=== PATIENT | male | born 1975 | race Caucasian/White ===

== ENCOUNTER 2016-09-20 11:36 | Inpatient (IN) | payer BC ==
[~2016-09-20] VITALS: Ht 190.5 cm; Wt 169.5 kg
[2016-09-20] MEDS ORDERED: KETOROLAC 15 MG INJ IV STA (12:38)
[2016-09-20] MEDS ORDERED: LIDOCAINE/MYLANTA 40 ML BTL PO STA (12:44)
[2016-09-20] MEDS ORDERED: BELLADONNA/PHENOBARBITAL TAB PO STA (12:44)
[2016-09-20] MEDS ORDERED: ASPI-664 PO (12:50)
[2016-09-20] MEDS ORDERED: ASPIRIN 81 MG TAB PO ONE (13:00)
[2016-09-20] MEDS ORDERED: NITROGLYCERIN (SL) 0.4 MG TAB SL ONE (13:00)
[2016-09-20 13:06] LABS: BASOPHIL # 0.1 10^3/ul (0.0-0.1); BASOPHILS % 0.6 % (0.0-2.0); EOSINOPHILS # 0.2 10^3/ul (0.0-0.5); EOSINOPHILS % 2.3 % (0.0-7.0); HEMATOCRIT 43.9 % (42.0-52.0); HEMOGLOBIN 15.2 g/dl (14.0-18.0); LYMPHOCYTES # 2.1 10^3/ul (0.8-2.9); LYMPHOCYTES % 26.1 % (15.0-51.0); MEAN CORPUSCULAR HEMOGLOBIN 31.8 pg (29.0-33.0); MEAN CORPUSCULAR HGB CONC 34.6 g/dl (32.0-37.0); MEAN CORPUSCULAR VOLUME 91.8 fl (82.0-101.0); MEAN PLATELET VOLUME 10.5 fl (7.4-10.4); MONOCYTE # 0.7 10^3/ul (0.3-0.9); MONOCYTES % 8.8 % (0.0-11.0); NEUTROPHIL # 4.9 10^3/ul (1.6-7.5); NEUTROPHILS % 61.6 % (39.0-77.0); PLATELET COUNT 195 10^3/UL (140-415); RED BLOOD COUNT 4.78 10^6/ul (4.70-6.10); RED CELL DISTRIBUTION WIDTH 12.2 % (11.5-14.5); WHITE BLOOD COUNT 7.9 10^3/ul (4.8-10.8)
[2016-09-20 13:24] LABS: ALANINE AMINOTRANSFERASE 55 IU/L (13-69); ALBUMIN 4.7 g/dl (3.3-4.9); ALBUMIN/GLOBULIN RATIO 1.34; ALKALINE PHOSPHATASE 85 IU/L (42-121); ANION GAP 20 (8-16); ASPARTATE AMINO TRANSFERASE 28 IU/L (15-46); BILIRUBIN,INDIRECT 0.4 mg/dl (0-1.1); BILIRUBIN,TOTAL 0.4 mg/dl (0.2-1.3); BLOOD UREA NITROGEN 10 mg/dl (7-20); CALCIUM 9.5 mg/dl (8.4-10.2); CARBON DIOXIDE 27 mmol/L (21-31); CHLORIDE 103 mmol/L (97-110); CREATININE 0.68 mg/dl (0.61-1.24); GLUCOSE 90 mg/dl (70-220); POTASSIUM 4.4 mmol/L (3.5-5.1); TOTAL PROTEIN 8.2 g/dl (6.1-8.1)
[2016-09-20 13:42] LABS: TROPONIN-I < 0.012 ng/ml (0.00-0.12)
[2016-09-20 14:01] LABS: SODIUM 144 mmol/L (135-144)
--- NOTE | 2016-09-20 14:14 | RADRPT ---
PROCEDURE: Chest Radiograph. CLINICAL INDICATION: Abdominal pain TECHNIQUE: Single frontal chest radiograph. COMPARISON: None available FINDINGS: The cardiomediastinal silhouette is within normal limits. No infiltrate or effusion is seen. Th e bones are intact. IMPRESSION: 1. Unremarkable chest radiograph. RPTAT: KK .Williams Murphy MD, MD Date Time Electronically viewed and signed by .Williams Murphy MD, on 09/20/2016 14:14 .B/
[2016-09-20] MEDS ORDERED: hydrALAzine 20 MG INJ IV PRN (15:00)
[2016-09-20] MEDS ORDERED: ONDANSETRON 4 MG INJ IV PRN (15:00)
[2016-09-20] MEDS ORDERED: NITROGLYCERIN (SL) 0.4 MG TAB SL PRN (15:00)
[2016-09-20] MEDS ORDERED: ACETAMINOPHEN 650 MG SUPP PR PRN (15:00)
[2016-09-20] MEDS ORDERED: DOCUSATE SODIUM 100 MG CAP PO PRN (15:00)
[2016-09-20] MEDS ORDERED: NACL 0.9% 3 ML SYG IV SCH (15:00)
[2016-09-20] MEDS ORDERED: morphine 2 MG INJ IV PRN (15:00)
[2016-09-20] MEDS ORDERED: ACETAMINOPHEN 325 MG TAB PO PRN (15:00)
--- NOTE | 2016-09-20 15:10 | HP ---
Date/Time of Note Date/Time of Note DATE: 09/20/16 TIME: 15:06 Assessment/Plan VTE Prophylaxis VTE Prophylaxis Intervention: LMWH Assessment/Plan Chief Complaint/Hosp Course This is a 41-year-old male with a past medical history of myocardial infarction , stent placed, who presented to the emergency room for evaluation of chest pain 1. Substernal chest pain. Rule out acute coronary syndrome versus possible GERD syndrome. -Obtain serial troponin 3, serial EKG, and 2D echocardiogram. -Patient will be started on aspirin. -Cardiology consult for further risk stratification. 2. History of dyslipidemia, off statin therapy. -Obtain fasting lipid panel and treat accordingly. 3. Morbid obesity. -Weight reduction advised. Will also obtain A1c. 4.Sleep apnea.Home CPAP -CPAP standby 5.History of [place] with PTCA and stent 5 yo ago. DVT prophylaxis: Lovenox PUD prophylaxis: Pepcid Plan: Patient will be admitted inpatient telemetry. We will rule out acute coronary syndrome. We will also obtain A1c, TSH and fasting lipid panel. Patient will be placed on a diet. Rest of the management depend on clinical course, further studies and input from showroom consultant. Case discussed with Dr. Rosado Approximately 60 minutes was spent on this history and physical. Problems: HPI/ROS Admit Date/Time Admit Date/Time Hx of Present Illness This is a 41-year-old male with a past medical history of myocardial infarction 5 years ago with PTCA and stent placed, dyslipidemia who is now off statin therapy,obstructive sleep apnea who presented to the emergency room with a complaint of chest pain that started early this morning at 1030. Patient reported substernal chest pain without any radiation to other part. He denied any nausea, vomiting or abdominal discomfort. Patient denied any palpitation, shortness of breath, loss of consciousness, numbness or tingling. Patient takes only aspirin at home. Initial labs unremarkable with a negative troponin. EKG without any acute ST or T-wave changes. Patient was in sinus rhythm. In the emergency room, he was given aspirin, sublingual nitroglycerin in the emergency room. Patient chest pain was relieved with nitroglycerin sublingual and a clinical decision was made to admit for further evaluation. At my encounter with the patient, he did not have any further chest pain or other discomfort. ROS A 12 point review of system was assessed and is negative other than what is mentioned in the HPI PMH/Family/Social Past Medical History See HPI Past Surgical History See HPI Social History Denies smoking, alcohol or illicit drug use. Exam/Review of Systems Vital Signs Vitals Vital Signs Date Time Temp Pulse Resp B/P Pulse Ox O2 Delivery O2 Flow Rate FiO2 09/20/16 13:47 75 16 144/84 98 09/20/16 11:39 98.1 Exam Exam General: Well developed,adequately built, not in any acute distress . HEENT: Normocephalic, Atraumatic, No laceration or hematoma; Eyes: PEERL, Conjunctiva clear, Anicteric sclera Neck: Supple without any lymphadenopathy, nontender, no JVD, no carotid bruits, trachea midline, no thyromegaly Cardiac: S1, S2 auscultated, regular rhythm and rate, no mumurs or gallop Pulmonary: Normal respiratory effort. Chest clear to auscultation bilaterally, no adventitious breath sounds GI: Abdomen normal to inspection. Soft, non tender, non- distended, no masses, no rebound tenderness or guarding. Bowel sounds active on all four quadrants Genitourinary: Deferred Extremities: No cyanosis, clubbing, or edema. Pulses [2+] bilaterally. Full ROM on all four extremities. No focal weakness appreciated. Neurologic: Alert to person, place, time, and situation. Affect appropriate, intact sensation. Skin: Clean,dry, and intact. No ecchymosis, no rashes, or lesions Labs Result Diagram: 09/20/16 1300 09/20/16 1300 Medications Medications Current Medications Ondansetron HCl (Zofran Inj) 4 mg Q6H PRN IV NAUSEA AND/OR VOMITING; Start 09/20 at 15:00; Status UNV Acetaminophen (Tylenol Tab) 650 mg Q6H PRN PO PAIN LEVEL 1-3 OR FEVER; Start at 15:00; Status UNV Acetaminophen (Tylenol Supp) 650 mg Q6H PRN [place] PAIN LEVEL 1-3 OR FEVER; Start 09/20/16 at 15:00; Status UNV Morphine Sulfate (morphine) 2 mg Q4H PRN IV SEVERE PAIN LEVEL 7-10; Start at 15:00; Status UNV Docusate Sodium (Colace) 100 mg Q12H PRN PO CONSTIPATION; Start 09/20/16 at 15: 00; Status BENJAMIN FARLEY NP Sep 20, 2016 15:10
[2016-09-20 15:39] VITALS: TEMP 98.3
--- NOTE | 2016-09-20 16:05 | ERA ---
ER Documentation Chief Complaint Date/Time DATE: 09/20/16 TIME: 16:00 Chief Complaint cp onset 1 hr ago HPI 41-year-old man with a history of OR and stent placement 5 years ago presents with sharp stabbing substernal chest pain associated with diaphoresis beginning an hour ago while at an office meeting. He states the discomfort felt similar to his previous episode of OR 5 years ago. He denies cough, no fevers or chills , no vomiting, no headache or blurry vision, states discomfort has remained constant. Patient uses aspirin daily. ROS All systems reviewed and are negative except as per history of present illness. Medications Home Meds Reported Medications Aspirin (Low Dose Aspirin) 81 Mg Tablet., 81 MG PO DAILY, #30 TAB 09/20/16 Allergies Allergies: Coded Allergies: Penicillins (Unverified Allergy, Unknown, rash hives, 09/20/16) PMhx/Soc Obesity, CAD, OR, PCI with stent placement FmHx Family History: No diabetes Physical Exam Vitals Vital Signs Date Time Temp Pulse Resp B/P Pulse Ox O2 Delivery O2 Flow Rate FiO2 09/20/16 15:39 98.3 72 18 147/83 98 09/20/16 13:47 75 16 144/84 98 09/20/16 11:39 98.1 72 18 172/94 95 Physical Exam GENERAL: Well-developed, well-nourished, well-hydrated, in no apparent distress , looks nontoxic in appearance HEENT: Moist mucous membranes, pink conjunctiva, no cervical spine tenderness or step-off deformities, no goiter, no jaundice or icterus, extraocular movements intact without pain. No submandibular induration, and no pharyngeal erythema NEURO: Alert and oriented 3, cranial nerves II through XII intact bilaterally, pupils equal round reactive to light, no focal deficits or facial asymmetry, sensation intact distally Strength 5/5 in upper and lower extremities bilaterally CARDIAC: Regular rate and rhythm, no murmurs rubs or gallops LUNGS: Clear bilaterally no wheezing crackles or stridor ABDOMEN: Soft nontender, no guarding, no rigidity, no rebound, no psoas sign no obturator sign. Normoactive bowel sounds SKIN: Warm and dry to touch, no abrasions, contusions, or hematomas, no lacerations, no ecchymosis, no target lesions, and without ulcers EXTREMITIES: No clubbing cyanosis or edema, calves are bilaterally symmetrical, no Homans sign, no popliteal cord sign. Distal pulses equal and bilateral PSYCH: Normal affect without agitation or irritability Result Diagram: 09/20/16 1300 09/20/16 1300 Results 24 hrs Laboratory Tests Test 09/20/16 13:00 White Blood Count 7.910^3/ul Red Blood Count 4.7810^6/ul Hemoglobin 15.2g/dl Hematocrit 43.9% Mean Corpuscular Volume 91.8fl Mean Corpuscular Hemoglobin 31.8pg Mean Corpuscular Hemoglobin Concent 34.6g/dl Red Cell Distribution Width 12.2% Platelet Count 80342^3/UL Mean Platelet Volume 10.5fl Neutrophils % 61.6% Lymphocytes % 26.1% Monocytes % 8.8% Eosinophils % 2.3% Basophils % 0.6% Nucleated Red Blood Cells % 0.0/100WBC Neutrophils # 4.910^3/ul Lymphocytes # 2.110^3/ul Monocytes # 0.710^3/ul Eosinophils # 0.210^3/ul Basophils # 0.110^3/ul Nucleated Red Blood Cells # 0.010^3/ul Sodium Level 144mmol/L Potassium Level 4.4mmol/L Chloride Level 103mmol/L Carbon Dioxide Level 27mmol/L Anion Gap 20 Blood Urea Nitrogen 10mg/dl Creatinine 0.68mg/dl Glucose Level 90mg/dl Calcium Level 9.5mg/dl Total Bilirubin 0.4mg/dl Direct Bilirubin 0.00mg/dl Indirect Bilirubin 0.4mg/dl Aspartate Amino Transf (AST/SGOT) 28IU/L Alanine Aminotransferase (ALT/SGPT) 55IU/L Alkaline Phosphatase 85IU/L Troponin I < 0.012ng/ml Total Protein 8.2g/dl Albumin 4.7g/dl Globulin 3.50g/dl Albumin/Globulin Ratio 1.34 Lipase 111U/L Current Medications Medications (Trade) Dose Ordered Sig/Toma Route PRN Reason Start Time Stop Time Status Last Admin Dose Admin Ketorolac Tromethamine (Toradol) 15 mg ONCE STAT IV 09/20/16 12:38 09/20/16 12:45 DC 09/20/16 13:40 Aspirin (Aspirin) 324 mg ONCE ONCE PO 09/20/16 13:00 09/20/16 13:01 DC 09/20/16 13:40 Nitroglycerin (Nitroglycerin (Sl Tab) 0.4 Mg) 1 tab ONCE ONCE SL 09/20/16 13:00 09/20/16 13:01 DC 09/20/16 13:39 Miscellaneous Medication (Gi Cocktail (2)) 40 ml ONCE STAT PO 09/20/16 12:44 09/20/16 12:45 DC 09/20/16 13:40 Belladonna/ Phenobarbital () 2 tab ONCE STAT PO 09/20/16 12:44 09/20/16 12:45 DC 09/20/16 13:39 IV Flush (NS 3 ml) 3 ml PER PROTOCOL IV 09/20/16 15:00 Ondansetron HCl (Zofran Inj) 4 mg Q6H PRN IV NAUSEA AND/OR VOMITING 09/20/16 15:00 Acetaminophen (Tylenol Tab) 650 mg Q6H PRN PO PAIN LEVEL 1-3 OR FEVER 09/20/16 15:00 Acetaminophen (Tylenol Supp) 650 mg Q6H PRN [place] PAIN LEVEL 1-3 OR FEVER 09/20/16 15:00 Morphine Sulfate (morphine) 2 mg Q4H PRN IV SEVERE PAIN LEVEL 7-10 09/20/16 15:00 Docusate Sodium (Colace) 100 mg Q12H PRN PO CONSTIPATION 09/20/16 15:00 Famotidine (Pepcid) 20 mg Q12 PO 09/20/16 21:00 Enoxaparin Sodium (Lovenox) 40 mg DAILY SC 09/21/16 09:00 Aspirin (Aspirin) 81 mg DAILY PO 09/21/16 09:00 Hydralazine HCl (Apresoline) 10 mg Q6H PRN IV SBP>160 09/20/16 15:00 Nitroglycerin (Nitroglycerin (Sl Tab) 0.4 Mg) 1 tab Q5M PRN SL ANGINA 09/20/16 15:00 Metoprolol Tartrate (Lopressor) 25 mg BID PO 09/20/16 21:00 [facility] IV line was established patient was placed on cardiac sonographer rhythm strip revealed a sinus rhythm at about 80 bpm with upright P and T waves. Patient was afebrile. EKG #1 revealed a normal sinus rhythm at 73 bpm, normal axis, right ventricular conduction delay with incarceration of 100 ms, no concerning ST elevations or depressions noted. I administered aspirin 324 mg p.o. for cardioprotective measures and nitroglycerin 0.4 mg sublingual. Patient also received a GI cocktail 30 cc p.o. , and Toradol 15 mg IV 1. One AP view of the chest performed, read by me reveals no acute infiltrates, normal mediastinum, sharp costophrenic and cardiac borders, no air under the diaphragm. Otherwise unremarkable chest x-ray. CBC and electrolytes are normal, liver function tests normal, troponin was negative. EKG #2 was performed 2 hours after the first 1 revealing a normal sinus rhythm at 68 bpm, normal axis, with a right ventricular conduction delay, no concerning ST elevations or depressions noted. Patient will be admitted to telemetry setting for continued medical management cardiology consultation. Departure Diagnosis: Primary Impression: Chest pain Qualified Code: R07.9 - Chest pain, unspecified type Additional Impression: Hypertensive emergency Condition: YUE Chen MD Sep 20, 2016 16:05
[2016-09-20 17:00] VITALS: PULSE 68
[2016-09-20 18:42] LABS: CREATINE KINASE 83 IU/L (23-200)
[2016-09-20 18:56] LABS: CK-MB 0.48 ng/ml (0.0-2.4); TROPONIN-I < 0.012 ng/ml (0.00-0.12)
[2016-09-20 19:12] VITALS: Ht 190.5 cm; Wt 169.5 kg
[2016-09-20 19:44] VITALS: BP 157/77; RESP 19
[2016-09-20 20:00] VITALS: PULSE 70
[2016-09-20] MEDS: FAMOTIDINE 20 MG TAB PO SCH (20:55)
[2016-09-20] MEDS: METOPROLOL 25 MG TAB PO SCH (20:55)
[2016-09-20 23:39] VITALS: BP 142/79; RESP 17
[2016-09-21] VITALS (11 sets, daily range): BP systolic 126–143; BP diastolic 56–80; PULSE 48–65; RESP 16–20
[2016-09-21 02:13] LABS: CREATINE KINASE 73 IU/L (23-200)
[2016-09-21 02:29] LABS: CK-MB 0.49 ng/ml (0.0-2.4); TROPONIN-I < 0.012 ng/ml (0.00-0.12)
[2016-09-21 07:35] LABS: BASOPHILS % 0.6 % (0.0-2.0); EOSINOPHILS # 0.2 10^3/ul (0.0-0.5); EOSINOPHILS % 2.7 % (0.0-7.0); HEMATOCRIT 42.8 % (42.0-52.0); HEMOGLOBIN 14.5 g/dl (14.0-18.0); LYMPHOCYTES % 28.6 % (15.0-51.0); MEAN CORPUSCULAR HGB CONC 33.9 g/dl (32.0-37.0); MEAN CORPUSCULAR VOLUME 91.6 fl (82.0-101.0); MEAN PLATELET VOLUME 11.1 fl (7.4-10.4); MONOCYTE # 0.6 10^3/ul (0.3-0.9); MONOCYTES % 8.8 % (0.0-11.0); NEUTROPHIL # 4.2 10^3/ul (1.6-7.5); NEUTROPHILS % 58.9 % (39.0-77.0); PLATELET COUNT 196 10^3/UL (140-415); RED BLOOD COUNT 4.67 10^6/ul (4.70-6.10); RED CELL DISTRIBUTION WIDTH 12.3 % (11.5-14.5)
[2016-09-21 07:49] LABS: ALBUMIN 4.2 g/dl (3.3-4.9); ALBUMIN/GLOBULIN RATIO 1.23; BILIRUBIN,INDIRECT 0.6 mg/dl (0-1.1); BILIRUBIN,TOTAL 0.6 mg/dl (0.2-1.3); CALCIUM 9.4 mg/dl (8.4-10.2); CHOL/HDL RATIO 6.2 RATIO; CREATININE 0.73 mg/dl (0.61-1.24); PHOSPHORUS 4.3 mg/dl (2.5-4.9); POTASSIUM 4.5 mmol/L (3.5-5.1); TOTAL PROTEIN 7.6 g/dl (6.1-8.1)
--- NOTE | 2016-09-21 07:57 | CONS ---
DATE OF ADMISSION: 09/20/2016 DATE OF CONSULTATION: 09/20/2016 REASON FOR CONSULTATION: Chest pain, assess acute coronary syndrome. REQUESTING PHYSICIAN: Nurse Practitioner, Cleo Thao, from the Hospitalist Service. HISTORY OF PRESENT ILLNESS: Mr. Romero is a 41-year-old male with past medical history of myocardial infarction status post PTCA and stent placement 5 years prior, obstructive sleep apnea, who presented with complaints of recurrent episodes of substernal chest pain occurring during a business meeting and ongoing for approximately 1 hour. Patient describes the pain as a stabbing sensation without relief. Patient arrived to the emergency department, temperature 98.1, blood pressure markedly elevated at 172/94, pulse 72, respiratory rate 18, and satting 95 percent. The patient's labs were notable for a white count 7.9, hemoglobin 15.2, and platelet count 195. Sodium of 144, potassium 4.4, creatinine 0.6, BUN 10, troponin negative, AST 28, ALT 55. Patient's electrocardiogram sinus rhythm, rate of 73, normal axis, normal intervals, st depression slightly in aVL. Patient subsequently has been treated with aspirin 320 mg p.o. times 1, Toradol, , GI cocktail, sublingual nitroglycerin and now awaits admit to the floor. PAST MEDICAL HISTORY: As above in HPI. MEDICATION: Currently in hospital, Lovenox daily, aspirin 81 mg daily, Pepcid 20 q.12 hours, Zofran p.r.n., Tylenol p.r.n., morphine p.r.n., Colace p.r.n., hydralazine p.r.n., and sublingual nitroglycerin p.r.n. ALLERGIES: PENICILLIN. SOCIAL HISTORY: Quit tobacco times 5 years. Social EtOH. No illicit drug use. FAMILY HISTORY: No history of sudden cardiac or early CAD. REVIEW OF SYSTEMS: As above in HPI. CONSTITUTIONAL: No fever or chills. PULMONARY: No shortness of breath. HEART: Positive chest pain. GASTROINTESTINAL: No vomiting. GENITOURINARY: No hematuria. MUSCULOSKELETAL: Negative degenerative joint disease. PSYCHIATRIC: The patient has depression. NEUROLOGIC: No documented CVA. ENDOCRINE: No documented diabetes mellitus. PHYSICAL EXAMINATION: VITAL SIGNS: Temperature of 98.1, blood pressure most recent 144/84, pulse 95, respirations 16, and satting 98 percent. GENERAL: The patient is alert, awake, no acute distress. NECK: JVP 9cm. CHEST: Fair air movement throughout. HEART: Regular rate and rhythm. Normal S1, S2, 1/6 systolic murmur. Nondisplaced PMI. ABDOMEN: Positive bowel sounds, soft. EXTREMITIES: No edema. 1 plus pulses bilaterally posterior tibial. LABORATORY: As above in [facility], no further labs reviewed at this time. IMAGING STUDIES: Above in HPI, the no further images reviewed at this time. ECG as above in HPI. No further ECG reviewed this time. IMPRESSION: 1. Chest pain. Assess for acute coronary syndrome. 2. Abnormal electrocardiogram 3. Hypertension. 4. History of PTCA and stent placement 5 years prior. 5. History of myocardial infarction ([place]) 5 years prior. RECOMMENDATIONS: 1. At this time would admit patient to telemetry monitoring to follow rhythm and rate closely. 2. We will give patient sublingual nitroglycerin for recurrent episodes of chest pain. 3. Start patient on low-dose beta maggie. Follow blood pressure and heart rate closely. 4. Continue patient on aspirin at this time for prophylaxis of cardiovascular events. 5. Check a fasting lipid panel for general risk stratification. Initiate lipid medications as necessary. 6. We are going to check 2D echo to further assess patient's ejection fraction, wall motion and major abnormalities. 7. Check serial EKGs to assess changes from EKG in the morning. EKG for any complaint of chest pain or change in rhythm. 8. Patient ruled out for myocardial infarction. Given patient's cardiac history and EKG abnormalities I believe the patient will benefit from further risk stratification and the patient thus will be scheduled for Lexiscan stress test first thing in the morning. Dictated By: Yannick Mccord /samuel/rm /Document#: [id number] CC: Cleo Thao NP;*[facility]* [facility] CLINICCarlie
[2016-09-21 08:15] LABS: THYROID STIMULATING HORMONE 1.58 MIU/L (0.465-4.680)
--- NOTE | 2016-09-21 08:24 | RADRPT ---
Vent Rate: 58 bpm RR Interval: 0 msec IN Interval: 162 msec QRS Duration: 102 msec QT Interval: 416 msec QTC Interval: 408 msec P-R-T [place]: 24 - 63 - 68 degrees Sinus bradycardia Otherwise normal ECG Electronically Signed By: Ignacio Zacarias [id number]
[2016-09-21] MEDS: FAMOTIDINE 20 MG TAB PO SCH ×2 (08:44→20:39)
[2016-09-21] MEDS: ASPIRIN 81 MG TAB PO SCH (08:44)
[2016-09-21] MEDS: ENOXAPARIN 40 MG/0.4 ML SYG SC SCH (08:45)
[2016-09-21] MEDS: METOPROLOL 25 MG TAB PO SCH ×2 (08:45→20:39)
--- NOTE | 2016-09-21 10:46 | PN ---
Date/Time of Note Date/Time of Note DATE: 09/21/16 TIME: 10:42 Assessment/Plan VTE Prophylaxis VTE Prophylaxis Intervention: LMWH Lines/Catheters IV [facility] Saline Lock Urinary Cath still in place: No Assessment/Plan Chief Complaint/Hosp Course 1. Substernal chest pain. Rule out acute coronary syndrome versus possible GERD syndrome. -Troponin 3 negative, EKG without any acute ST or T-wave changes. Pending 2D echocardiogram. -Patient has been seen by cardiology and is for Lexiscan stress test today for further risk stratification. -Continue aspirin. 2. History of dyslipidemia, off statin therapy. -Lipid panel and ordered an LDL within acceptable range. Patient with triglyceridemia, mild. -Advised on diet control and exercise. 3. Morbid obesity. -Weight reduction advised. A1c within acceptable range. 4.Sleep apnea.Home CPAP -CPAP standby 5.History of [place] with PTCA and stent 5 yo ago. DVT prophylaxis: Lovenox PUD prophylaxis: Pepcid Plan: Follow-up with Lexiscan stress test findings. If no further cardiac workup indicated, DC planning in AM. Case discussed with Dr. Rosado Problems: Subjective 24 Hr Interval Summary Free Text/Dictation Patient with no further chest pain episodes, or palpitation. EKG without any acute ST or T-wave changes. Patient with episodes of asymptomatic bradycardia with lowest heart rate 48. Exam/Review of Systems Vital Signs Vitals Vital Signs Date Time Temp Pulse Resp B/P Pulse Ox O2 Delivery O2 Flow Rate FiO2 09/21/16 08:10 Nasal Cannula 2.0 09/21/16 08:00 61 09/21/16 07:45 97.5 20 130/69 98 Intake and Output 09/20/16 09/20/16 09/21/16 15:00 23:00 07:00 Intake Total 100 ml 700 ml Balance 100 ml 700 ml Exam General: Well developed,adequately built, not in any acute distress . HEENT: Normocephalic, Atraumatic, No laceration or hematoma; Eyes: PEERL, Conjunctiva clear, Anicteric sclera Neck: Supple without any lymphadenopathy, nontender, no JVD, no carotid bruits, trachea midline, no thyromegaly Cardiac: S1, S2 auscultated, regular rhythm and rate, no mumurs or gallop Pulmonary: Normal respiratory effort. Chest clear to auscultation bilaterally, no adventitious breath sounds GI: Abdomen normal to inspection. Soft, non tender, non- distended, no masses, no rebound tenderness or guarding. Bowel sounds active on all four quadrants Genitourinary: Deferred Extremities: No cyanosis, clubbing, or edema. Pulses [2+] bilaterally. Full ROM on all four extremities. No focal weakness appreciated. Neurologic: Alert to person, place, time, and situation. Affect appropriate, intact sensation. Skin: Clean,dry, and intact. No ecchymosis, no rashes, or lesions Results Result Diagram: 09/21/16 0652 09/21/1652 Results 24 hrs Laboratory Tests Test 09/20/16 13:00 09/20/16 18:01 09/21/16 01:01 09/21/16 06:52 White Blood Count 7.9 7.0 Red Blood Count 4.78 4.67 L Hemoglobin 15.2 14.5 Hematocrit 43.9 42.8 Mean Corpuscular Volume 91.8 91.6 Mean Corpuscular Hemoglobin 31.8 31.0 Mean Corpuscular Hemoglobin Concent 34.6 33.9 Red Cell Distribution Width 12.2 12.3 Platelet Count 195 196 Mean Platelet Volume 10.5 H 11.1 H Neutrophils % 61.6 58.9 Lymphocytes % 26.1 28.6 Monocytes % 8.8 8.8 Eosinophils % 2.3 2.7 Basophils % 0.6 0.6 Nucleated Red Blood Cells % 0.0 0.0 Neutrophils # 4.9 4.2 Lymphocytes # 2.1 2.0 Monocytes # 0.7 0.6 Eosinophils # 0.2 0.2 Basophils # 0.1 0.0 Nucleated Red Blood Cells # 0.0 0.0 Sodium Level 144 142 Potassium Level 4.4 4.5 Chloride Level 103 100 Carbon Dioxide Level 27 27 Anion Gap 20 H 20 H Blood Urea Nitrogen 10 17 Creatinine 0.68 0.73 Glucose Level 90 113 Calcium Level 9.5 9.4 Total Bilirubin 0.4 0.6 Direct Bilirubin 0.00 0.00 Indirect Bilirubin 0.4 0.6 Aspartate Amino Transf (AST/SGOT) 28 27 Alanine Aminotransferase (ALT/SGPT) 55 52 Alkaline Phosphatase 85 75 Troponin I < 0.012 < 0.012 < 0.012 Total Protein 8.2 H 7.6 Albumin 4.7 4.2 Globulin 3.50 H 3.40 H Albumin/Globulin Ratio 1.34 1.23 Lipase 111 Creatine Kinase 83 73 Creatine Kinase Index 0.6 0.7 Creatinine Kinase MB (Mass) 0.48 0.49 Hemoglobin A1c 5.7 Phosphorus Level 4.3 Magnesium Level 2.0 Triglycerides Level 285 H Cholesterol Level 163 LDL Cholesterol, Calculated 80 HDL Cholesterol 26 L Cholesterol/HDL Ratio 6.2 Thyroid Stimulating Hormone (TSH) 1.580 Medications Medications Current Medications Ondansetron HCl (Zofran Inj) 4 mg Q6H PRN IV NAUSEA AND/OR VOMITING; Start 09/20 at 15:00 Acetaminophen (Tylenol Tab) 650 mg Q6H PRN PO PAIN LEVEL 1-3 OR FEVER; Start at 15:00 Acetaminophen (Tylenol Supp) 650 mg Q6H PRN [place] PAIN LEVEL 1-3 OR FEVER; Start 09/20/16 at 15:00 Morphine Sulfate (morphine) 2 mg Q4H PRN IV SEVERE PAIN LEVEL 7-10; Start at 15:00 Docusate Sodium (Colace) 100 mg Q12H PRN PO CONSTIPATION; Start 09/20/16 at 15: 00 Famotidine (Pepcid) 20 mg Q12 PO Last administered on 09/21/16 08:44; Admin Dose 20 MG; Start 09/20/16 at 21:00 Enoxaparin Sodium (Lovenox) 40 mg DAILY SC Last administered on 09/21/16 08:45 ; Admin Dose 40 MG; Start 09/21/16 at 09:00 Aspirin (Aspirin) 81 mg DAILY PO Last administered on 09/21/16 08:44; Admin Dose 81 MG; Start 09/21/16 at 09:00 Hydralazine HCl (Apresoline) 10 mg Q6H PRN IV SBP>160; Start 09/20/16 at 15:00 Nitroglycerin (Nitroglycerin (Sl Tab) 0.4 Mg) 1 tab Q5M PRN SL ANGINA; Start at 15:00 Metoprolol Tartrate (Lopressor) 25 mg BID PO Last administered on 09/20/16 20: 55; Admin Dose 25 MG; Start 09/20/16 at 21:00 BENJAMIN SORENSON NP Sep 21, 2016 10:46 BENJAMIN SORENSON NP Sep 21, 2016 10:46
--- NOTE | 2016-09-21 15:05 | PDOCDIS ---
Discharge Instructions CONDITION Patient Condition: Stable HOME CARE INSTRUCTIONS: Special Diet: Cardiac Diet FOLLOW UP/APPOINTMENTS Follow-up Plan 1.Follow up with primary care physician in 1 week If you don't have one please let someone know, we can give you resources that may help you pick one. You may also call your insurance company to assign one to you. Review your medication list with your nurse before leaving and if you need new prescriptions please let your nurse know. I may have made changes to your home medications or given you new prescriptions, please let your primary doctor know as well. Stay compliant with your medications and report any side effects to your PCP or pharmacist. Return to the ER if you have any concerns and cannot reach your doctors or call your insurance company, they usually have a nurse that can help you. 2. Call 911 or go to the nearest emergency room if experiencing loss of consciousness, dizziness, chest pain, shortness of breath, vomiting/abdominal pain, speech difficulties, motor weakness or any unusual symptoms. BENJAMIN SORENSON NP Sep 21, 2016 15:04
--- NOTE | 2016-09-21 15:13 | DS ---
Date/Time of Note Date/Time of Note DATE: 09/21/16 TIME: 15:10 Discharge Summary Admission/Discharge Info Admit Date/Time Sep 20, 2016 at 13:33 Discharge Date/Time Discharge Diagnosis 1. Substernal chest pain. Rule out acute coronary syndrome versus possible GERD syndrome. 2. History of dyslipidemia, off statin therapy. 3. Morbid obesity. 4.Sleep apnea.Home CPAP 5.History of MT with PTCA and stent 5 yo ago. Patient Condition: Stable Consults Dr. Neal, cardiology Procedures 09/21/2016. 2D echocardiogram Conclusions Normal left ventricular systolic function. Moderate concentric left ventricular hypertrophy. Ejection fraction is visually estimated at 55 %. Tissue Doppler/Mitral Doppler indices are within normal limits. Mild mitral leaflet calcification. Mild mitral annular calcification. Trace mitral regurgitation. Normal appearance of the tricuspid valve. Unable to obtain RVSP due to minimal presence of tricuspid regurgitation. There is trace tricuspid regurgitation. Pulmonic valve not well visu Hospital Course This is a very pleasant morbidly obese 41-year-old male with a past medical history of myocardial infarction, status post PTCA and stent placed 5 years prior, obstructive sleep apnea, who presented to the emergency room for evaluation of stabbing chest pain for approximately 1 hour during a business meeting. In the emergency room, blood pressure was markedly elevated at 172/ 94. Initial labs within acceptable range with a negative troponin. EKG was negative. Patient was admitted for further evaluation. She received aspirin in the emergency room. Patient was continued on aspirin. He was evaluated by cardiology. Serial troponin was negative. Serial EKG also negative without any ischemic changes. A 2D echocardiogram with normal left ventricular systolic function with ejection fraction 55%. There was no valvular pathologies. The plan was to do further risk stratification by Lexiscan stress test. Unfortunately due to body habitus patient was not a candidate for Lexiscan stress test. At this time, patient does not have any further chest pain. He was feeling back to his usual state of health. ACS ruled out with serial troponin 3, serial EKGs and 2D echocardiogram. Patient is medically stable for discharge with outpatient follow-up. Disposition: Patient will be discharged home today with outpatient follow-up. During the course of hospitalization, patient was checked for A1c which was normal, a TSH level also was normal and a lipid panel showed elevated triglycerides 285. LDL was within acceptable range. Patient was instructed on therapeutic lifestyle changes and repeat lipid panel in 4 weeks. Patient verbalized discharge instructions. Condition at time of discharge is stable. Approximately 60 minutes was spent in chronic and the discharge on this patient. Case discussed with Home Meds Active Scripts Benazepril Hcl* (Benazepril Hcl*) 10 Mg Tablet, 10 MG PO DAILY, #30 TAB Prov:BENJAMIN SORENSON V. CREDIT CARD ANALYST 09/22/16 Reported Medications Benazepril Hcl* (Benazepril Hcl*) 10 Mg Tablet, 10 MG PO DAILY, #30 TAB 09/22/16 Aspirin (Low Dose Aspirin) 81 Mg Tablet.dr, 81 MG PO DAILY, #30 TAB 09/20/16 Discontinued Reported Medications Benazepril Hcl* (Benazepril Hcl*) 10 Mg Tablet, 10 MG PO DAILY, #30 TAB 09/22/16 Follow-up Plan 1.Follow up with primary care physician in 1 week If you don't have one please let someone know, we can give you resources that may help you pick one. You may also call your insurance company to assign one to you. Review your medication list with your nurse before leaving and if you need new prescriptions please let your nurse know. I may have made changes to your home medications or given you new prescriptions, please let your primary doctor know as well. Stay compliant with your medications and report any side effects to your PCP or pharmacist. Return to the ER if you have any concerns and cannot reach your doctors or call your insurance company, they usually have a nurse that can help you. 2. Call 911 or go to the nearest emergency room if experiencing loss of consciousness, dizziness, chest pain, shortness of breath, vomiting/abdominal pain, speech difficulties, motor weakness or any unusual symptoms. Primary Care Provider Care Physician No Primary Pending Labs Laboratory Tests Test 09/20/16 18:01 09/21/16 01:01 09/21/16 06:52 Creatine Kinase 83IU/L (23-200) 73IU/L (23-200) Creatine Kinase Index 0.6 0.7 Creatinine Kinase MB (Mass) 0.48ng/ml (0.0-2.4) 0.49ng/ml (0.0-2.4) Troponin I < 0.012ng/ml (0.00-0.12) < 0.012ng/ml (0.00-0.12) White Blood Count 7.010^3/ul (4.8-10.8) Red Blood Count 4.6710^6/ul (4.70-6.10) Hemoglobin 14.5g/dl (14.0-18.0) Hematocrit 42.8% (42.0-52.0) Mean Corpuscular Volume 91.6fl (82.0-101.0) Mean Corpuscular Hemoglobin 31.0pg (29.0-33.0) Mean Corpuscular Hemoglobin Concent 33.9g/dl (32.0-37.0) Red Cell Distribution Width 12.3% (11.5-14.5) Platelet Count 08760^3/UL (140-415) Mean Platelet Volume 11.1fl (7.4-10.4) Neutrophils % 58.9% (39.0-77.0) Lymphocytes % 28.6% (15.0-51.0) Monocytes % 8.8% (0.0-11.0) Eosinophils % 2.7% (0.0-7.0) Basophils % 0.6% (0.0-2.0) Nucleated Red Blood Cells % 0.0/100WBC (0.0-0.0) Neutrophils # 4.210^3/ul (1.6-7.5) Lymphocytes # 2.010^3/ul (0.8-2.9) Monocytes # 0.610^3/ul (0.3-0.9) Eosinophils # 0.210^3/ul (0.0-0.5) Basophils # 0.010^3/ul (0.0-0.1) Nucleated Red Blood Cells # 0.010^3/ul (0.0-0.0) Sodium Level 142mmol/L (135-144) Potassium Level 4.5mmol/L (3.5-5.1) Chloride Level 100mmol/L (97-110) Carbon Dioxide Level 27mmol/L (21-31) Anion Gap 20 (8-16) Blood Urea Nitrogen 17mg/dl (7-20) Creatinine 0.73mg/dl (0.61-1.24) Glucose Level 113mg/dl (70-220) Hemoglobin A1c 5.7% (0-5.9) Calcium Level 9.4mg/dl (8.4-10.2) Phosphorus Level 4.3mg/dl (2.5-4.9) Magnesium Level 2.0mg/dl (1.7-2.5) Total Bilirubin 0.6mg/dl (0.2-1.3) Direct Bilirubin 0.00mg/dl (0.00-0.20) Indirect Bilirubin 0.6mg/dl (0-1.1) Aspartate Amino Transf (AST/SGOT) 27IU/L (15-46) Alanine Aminotransferase (ALT/SGPT) 52IU/L (13-69) Alkaline Phosphatase 75IU/L (42-121) Total Protein 7.6g/dl (6.1-8.1) Albumin 4.2g/dl (3.3-4.9) Globulin 3.40g/dl (1.3-3.2) Albumin/Globulin Ratio 1.23 Triglycerides Level 285mg/dl (0-149) Cholesterol Level 163mg/dl (100-200) LDL Cholesterol, Calculated 80mg/dl HDL Cholesterol 26mg/dl (27-67) Cholesterol/HDL Ratio 6.2RATIO Thyroid Stimulating Hormone (TSH) 1.580MIU/L (0.465-4.680) BENJAMIN SORENSON NP Sep 21, 2016 15:13
--- NOTE | 2016-09-21 20:38 | RADRPT ---
Echocardiogram Report Patient Name: RENÉE ROYAL Gender: Male Date: 1975 Study Date: 21-Sep-2016 Information Systems Specialist: Ran Moore [facility] Location: 5540 Ref. Physician: BENJAMIN SORENSON Quality: Adequate Procedures: Transthoracic echocardiogram with complete 2D, M-Mode, and doppler examination. Indications: Chest Pain. 2D/M Mode Doppler Measurement Value Normal Ranges Measurement Value Normal Ranges LVIDd 2D 5.1 3.5 - 5.6 cm AV Peak Shiva 1.5 m/sec LVIDs 2D 3.7 2.1 - 4.1 cm AV Peak PG 9.0 mmHg FS 2D 27.3 % LVOT Peak Shiva 1.4 m/sec LVPWd 2D 1.5 0.6 - 1.1 cm LVOT Peak PG 8.0 mmHg IVSd 2D 1.5 0.6 - 1.1 cm MV E Peak Shiva 1.1 m/sec IVS/LVPW 2D 1.0 MV A Peak Shiva 0.8 m/sec AoR Diam 2D 3.1 2.0 - 3.7 cm MV E/A 1.4 LA/Ao 2D 2 0 - 1 MV Decel Time 197 msec EDV 2D 132.0 cm3 MV E/A 1.4 ESV 2D 50.7 cm3 LA Dimen 2D 4.8 2.3 - 4.0 cm Findings Left Ventricle: Normal left ventricular systolic function. Moderate concentric left ventricular hypertrophy. Ejection fraction is visually estimated at 55 %. Tissue Doppler/Mitral Doppler indices are within normal limits. Right Ventricle: Normal right ventricular size. Normal right ventricular systolic function. Left Atrium: The left atrium is normal in size. Right Atrium: The right atrium is normal in size. Mitral Valve: Mild mitral leaflet calcification. Mild mitral annular calcification. Trace mitral regurgitation. Aortic Valve: Normal appearance of the aortic valve. No significant aortic stenosis or insufficiency. Tricuspid Valve: Normal appearance of the tricuspid valve. Unable to obtain RVSP due to minimal presence of tricuspid regurgitation. There is trace tricuspid regurgitation. Pulmonic Valve: Pulmonic valve not well visualized. There is trace pulmonic regurgitation. Pericardium: There is an anterior echo free space consistent with epicardial fat pad. Aorta: Normal aortic root. IVC: Dilated IVC with respiratory collapse consistent with elevated right atrial pressure. Conclusions Normal left ventricular systolic function. Moderate concentric left ventricular hypertrophy. Ejection fraction is visually estimated at 55 %. Tissue Doppler/Mitral Doppler indices are within normal limits. Mild mitral leaflet calcification. Mild mitral annular calcification. Trace mitral regurgitation. Normal appearance of the tricuspid valve. Unable to obtain RVSP due to minimal presence of tricuspid regurgitation. There is trace tricuspid regurgitation. Pulmonic valve not well visualized. There is trace pulmonic regurgitation. Electronically Signed By: Narciso Neal 21-Sep-2016 20:37:49 -0700 Patient Name: RENÉE ROYAL Study Date: 21-Sep-[id number]
--- NOTE | 2016-09-21 20:43 | CONS ---
Date/Time of Note Date/Time of Note DATE: 09/21/16 TIME: 20:38 Assessment/Plan Assessment/Plan Chief Complaint/Hosp Course IMP: 1. Chest pain. Assess for acute coronary syndrome.-negative trop x 3 /NL EF by echo this admit/no recurrent chest pain 2. Abnormal electrocardiogram- neg trop x 3 3. Hypertension. 4. History of PTCA and stent placement 5 years prior. 5. History of myocardial infarction ([place]) 5 years prior. 6. DYslipidemia-LDL 80 HDL 26 7. BRadycardia mild with elevated BP-TSH WNL RECc: -Tele -BB as tolerated -continue asa -start ACEI to improve BP control -DC planing if no recurrent chest pain and stable VS Problems: Consultation Date/Type/Reason Admit Date/Time Sep 20, 2016 at 13:33 Initial Consult Date 09/20/2016 Type of Consultation: cardiology Reason for Consultation chest pain Referring Provider: BENJAMIN SORENSON V. FLAVORING MAKER Exam/Review of Systems Vital Signs Vitals Vital Signs Date Time Temp Pulse Resp B/P Pulse Ox O2 Delivery O2 Flow Rate FiO2 09/21/16 20:20 98.1 64 16 143/80 95 09/21/16 18:59 2.0 09/21/16 08:10 Nasal Cannula Intake and Output 09/20/16 09/20/16 09/21/16 15:00 23:00 07:00 Intake Total 100 ml 700 ml Balance 100 ml 700 ml Exam Review of Systems: CONSTITUTIONAL: No fevers, chills. PULMONARY: No sob CARDIOVASCULAR: No chest pain/palpitations GASTROINTESTINAL: No nausea/vomiting. GENITOURINARY: No hematuria/dysuria. MUSCULOSKELETAL: No myagias/arthalgias. PSYCHIATRIC: The patient denies depression. NEUROLOGIC: No weakness Constitutional: alert Psych: no complaints Head: normocephalic ENMT: mucosa pink and moist Neck: jvd (8 cm water), supple Cardiovascular: regular rate and rhythm Gastrointestinal: non-tender, soft Musculoskeletal: muscle tone (normal) Extremities: edema (none) Neurological: other (No focal deficits) Results Result Diagram: 09/21/16 0652 09/21/16 0652 Results 24 hrs Laboratory Tests Test 09/21/16 01:01 09/21/16 06:52 Creatine Kinase 73 Creatine Kinase Index 0.7 Creatinine Kinase MB (Mass) 0.49 Troponin I < 0.012 White Blood Count 7.0 Red Blood Count 4.67 L Hemoglobin 14.5 Hematocrit 42.8 Mean Corpuscular Volume 91.6 Mean Corpuscular Hemoglobin 31.0 Mean Corpuscular Hemoglobin Concent 33.9 Red Cell Distribution Width 12.3 Platelet Count 196 Mean Platelet Volume 11.1 H Neutrophils % 58.9 Lymphocytes % 28.6 Monocytes % 8.8 Eosinophils % 2.7 Basophils % 0.6 Nucleated Red Blood Cells % 0.0 Neutrophils # 4.2 Lymphocytes # 2.0 Monocytes # 0.6 Eosinophils # 0.2 Basophils # 0.0 Nucleated Red Blood Cells # 0.0 Sodium Level 142 Potassium Level 4.5 Chloride Level 100 Carbon Dioxide Level 27 Anion Gap 20 H Blood Urea Nitrogen 17 Creatinine 0.73 Glucose Level 113 Hemoglobin A1c 5.7 Calcium Level 9.4 Phosphorus Level 4.3 Magnesium Level 2.0 Total Bilirubin 0.6 Direct Bilirubin 0.00 Indirect Bilirubin 0.6 Aspartate Amino Transf (AST/SGOT) 27 Alanine Aminotransferase (ALT/SGPT) 52 Alkaline Phosphatase 75 Total Protein 7.6 Albumin 4.2 Globulin 3.40 H Albumin/Globulin Ratio 1.23 Triglycerides Level 285 H Cholesterol Level 163 LDL Cholesterol, Calculated 80 HDL Cholesterol 26 L Cholesterol/HDL Ratio 6.2 Thyroid Stimulating Hormone (TSH) 1.580 Medications Medications Current Medications Ondansetron HCl (Zofran Inj) 4 mg Q6H PRN IV NAUSEA AND/OR VOMITING; Start 09/20 at 15:00 Acetaminophen (Tylenol Tab) 650 mg Q6H PRN PO PAIN LEVEL 1-3 OR FEVER; Start at 15:00 Acetaminophen (Tylenol Supp) 650 mg Q6H PRN WI PAIN LEVEL 1-3 OR FEVER; Start 09/20/16 at 15:00 Morphine Sulfate (morphine) 2 mg Q4H PRN IV SEVERE PAIN LEVEL 7-10; Start at 15:00 Docusate Sodium (Colace) 100 mg Q12H PRN PO CONSTIPATION; Start 09/20/16 at 15: 00 Famotidine (Pepcid) 20 mg Q12 PO Last administered on 09/21/16 08:44; Admin Dose 20 MG; Start 09/20/16 at 21:00 Enoxaparin Sodium (Lovenox) 40 mg DAILY SC Last administered on 09/21/16 08:45 ; Admin Dose 40 MG; Start 09/21/16 at 09:00 Aspirin (Aspirin) 81 mg DAILY PO Last administered on 09/21/16 08:44; Admin Dose 81 MG; Start 09/21/16 at 09:00 Hydralazine HCl (Apresoline) 10 mg Q6H PRN IV SBP>160; Start 09/20/16 at 15:00 Nitroglycerin (Nitroglycerin (Sl Tab) 0.4 Mg) 1 tab Q5M PRN SL ANGINA; Start at 15:00 Metoprolol Tartrate (Lopressor) 25 mg BID PO Last administered on 09/20/16 20: 55; Admin Dose 25 MG; Start 09/20/16 at 21:00 RINKU WORKMAN Sep 21, 2016 20:43
[2016-09-22] VITALS: PULSE 51
[2016-09-22] MEDS ORDERED: BENA10TA48 PO ×3 (02:01→08:17)
[2016-09-22 04:00] VITALS: PULSE 46
[2016-09-22 04:37] VITALS: BP 132/72; PULSE 56; RESP 18
[2016-09-22 08:09] VITALS: BP 137/76; RESP 18
[2016-09-22 08:39] VITALS: PULSE 62
[2016-09-22] MEDS: METOPROLOL 25 MG TAB PO SCH (08:50)
[2016-09-22] MEDS: ASPIRIN 81 MG TAB PO SCH (08:52)
[2016-09-22] MEDS: FAMOTIDINE 20 MG TAB PO SCH (08:52)
[2016-09-22] MEDS: ENOXAPARIN 40 MG/0.4 ML SYG SC SCH (08:53)
[2016-09-22] MEDS ORDERED: BENAZEPRIL 10 MG TAB PO SCH (09:00)
[2016-09-22 12:08] VITALS: PULSE 106
== END 2016-09-22 09:40 | disposition home or self-care (01) | DRG 313 ==
LOC: E/R 11:36 → MS4 13:33
PROVIDERS: ADMIT Internal Medicine; ATTEND Internal Medicine
DX: R07.2 Precordial pain (principal); I25.2 Old myocardial infarction; Z68.42 Body mass index [BMI] 45.0-49.9, adult; I10 Essential (primary) hypertension; R94.31 Abnormal electrocardiogram [ECG] [EKG]; E78.5 Hyperlipidemia, unspecified; E66.01 Morbid (severe) obesity due to excess calories; G47.33 Obstructive sleep apnea (adult) (pediatric); R00.1 Bradycardia, unspecified; Z95.5 Presence of coronary angioplasty implant and graft; Z87.891 Personal history of nicotine dependence
CPT/HCPCS: 71010; 80053; 80061; 82550; 82553; 83036; 83690; 83735; 84100; 84443; 84484; 85025; 93005; 93306; 96374; J1650; J1885